=== PATIENT | male | born 1960 | race Caucasian/White ===

== ENCOUNTER 2024-05-10 11:37 | Emergency (ER) | payer BC ==
--- OUTSIDE RECORDS SUMMARY | 2024-05-10 11:41 | XMS REPORT | Continuity of Care Document ---
Author Name Unknown Address [address] [facility] [address] [place], [place] [address] [place] [address] thconnect Address [address] [address] [address] [place] [address] Care Team Providers Care Newspaper Subscription Solicitor Name Role Phone JOSÉ MANUEL WELLER Primary Care Physician Unavailab DR JOSÉ MANUEL Landeros Attending Clinician Unavailab vicki [phone] Attending Clinician Unavailable FOG_A_Provider Attending Clinician Unavailable Fallon Attending Clinician Unavailable SISSON_C Attending Clinician Unavailable DR JOSÉ MANUEL WELLER Admitting Clinician Unavailab vicki FOG_A_Provider Admitting Clinician Unavailable Fallon Admitting Clinician Unavailable SISSON_C Admitting Clinician Unavailable Payers Payer Name Policy Type Policy Number Effective Date Expirati on Date Source [place]UE [place] - [place] [id number] [place] [id number] 2020 00:00:00 [place] [id number] 2020 00:00:00 Problems Condition Name Condition Details Condition Category Status Onset Date Resolution Date Last Treatment Date Treating Clinician Comments Source Urgent desire to urinate Urgent Desire to Urinate Problem Active 12-15 00:00: 00 [facility] Cellulitis of lower leg Cellulitis of Lower Leg Problem Active 2022-05 00:00: 00 [facility] Dog bite of lower leg Dog Bite of Lower Leg Problem Active 2022-05 00:00: 00 [facility] Acquired right hallux rigidus Acquired Right Hallux Rigidus Problem Active 02-05 00:00: 00 [facility] Contusion of right great toe Contusion of Right Great Toe Problem Active 9-14 00:00: 00 [facility] Pain in right foot Pain in Right Foot Problem Active -13 00:00: 00 [facility] Prostate specific antigen above reference range Prostate Specific Antigen above Reference Range Problem Active 09-10 00:00: [address] [facility] Body mass index 25-29 - overweight Body Mass Index 25-29 - Overweight Problem Active 09-10 00:00: [address] [facility] Benign prostatic hyperplasi a with outflow obstructio n Benign Prostatic Hyperplasi a with Outflow Obstructio n Problem Active 09-10 00:00: 00 [facility] Slowing of urinary stream Slowing of Urinary Stream Problem Active 09-10 00:00: [address] [facility] Social History Smoking Status Start Date Stop Date Source Former Smoker [facility] Medications Ordered Medication Name Filled Medication Name Start Date Stop Date Current Medication? Ordering Clinician Indication Dosage Frequency Signature (SIG) Comments Components Source Gemtesa 75 mg tablet Take 1 tablet every day by oral route. Gemtesa 75 mg tablet Take 1 tablet every day by oral route. No 1 Q1D Gemtesa 75 mg tablet Take 1 tablet every day by oral route. [facility] Augmentin 875 mg-125 mg tablet Take 1 tablet every 12 hours by oral route after meals. Augmentin 875 mg-125 mg tablet Take 1 tablet every 12 hours by oral route after meals. No 1 Q12H Augmentin 875 mg-125 mg tablet Take 1 tablet every 12 hours by oral route after meals. [facility] Bactrim DS 800 mg-160 mg tablet Take 1 tablet every 12 hours by oral route after meals. Bactrim DS 800 mg-160 mg tablet Take 1 tablet every 12 hours by oral route after meals. No 1 Q12H Bactrim DS 800 mg-160 mg tablet Take 1 tablet every 12 hours by oral route after meals. [facility] Vital Signs Vital Name Observation Time Observation Value Comments S avelinoce Body Weight 2023-12-16 00:00:00 185 [lb_av] [facility] BP Systolic 2023-12-16 00:00:00 134 mm[Hg] [facility] BMI (Body Mass Index) 2023-12-16 00:00:00 26.5 kg/m2 [facility] BP Diastolic 2023-12-16 00:00:00 70 mm[Hg] [facility] Height 2023-12-16 00:00:00 70 [in_i] [facility] Height 2023-05-06 00:00:00 70 [in_i] [facility] BP Diastolic 2023-05-06 00:00:00 64 mm[Hg] [facility] Body Weight 2023-05-06 00:00:00 193 [lb_av] [facility] BMI (Body Mass Index) 2023-05-06 00:00:00 27.7 kg/m2 [facility] BP Systolic 2023-05-06 00:00:00 131 mm[Hg] [facility] BMI (Body Mass Index) 2023-04-14 00:00:00 27.3 kg/m2 [facility] Body Weight 2023-04-14 00:00:00 190 [lb_av] [facility] Height 2023-04-14 00:00:00 70 [in_i] [facility] BP Diastolic 2022-09-10 00:00:00 70 mm[Hg] [facility] Height 2022-09-10 00:00:00 70 [in_i] [facility] BMI (Body Mass Index) 2022-09-10 00:00:00 27.3 kg/m2 [facility] BP Systolic 2022-09-10 00:00:00 129 mm[Hg] [facility] Body Weight 2022-09-10 00:00:00 190 [lb_av] [facility] Procedures Procedure Date / Time Performed Performing Clinician Source GI- Appendectomy 2017-08-20 00:00:00 [facility] GI- Umbilical Hernia 2016-08-13 00:00:00 [facility] Hernia Repair [facility] GI- Inguinal Hernia [facility] App[facility]ectomy [facility] Cancer [facility] Gastro[facility] Plan of Care Planned Activity Planned Date Details Comments Source Instructions [facility] Encounters Start Date/Time End Date/Time Encounter Type Admission Type Attending [facility] Care Facility Care Department Encounter ID Source 2022-03-07 09:14:34 Outpatient GERMÁNJOSÉ MANUEL CIFUENTES [id number] [facility] [id number] [facility] 2023-12-16 00:00:00 2023-12-16 00:00:00 Jace Coombs MD: [address] [phone] , Ph. [facility] [place] [address] [id number] [facility] 2023-07-23 00:00:00 2023-07-23 00:00:00 Outpatient FOG_A_Provi karla AOSM AOSM [id number] [facility] 2023-07-15 00:00:00 2023-07-15 00:00:00 Outpatient FOG_A_Provi karla AOSM AOSM [id number] [facility] 2023-06-16 00:00:00 2023-06-16 00:00:00 Outpatient FOG_A_Provi karla AOSM AOSM [id number] [facility] 2023-06-10 00:00:00 2023-06-10 00:00:00 Outpatient FOG_A_Provi karla AOSM AOSM [id number] [facility] 2023-05-24 00:00:00 2023-05-24 00:00:00 Outpatient FOG_A_Provi karla AOSM AOSM [id number] [facility] 2023-05-06 00:00:00 2023-05-06 00:00:00 Outpatient Fallon [facility] [id number] [facility] 2023-05-06 00:00:00 2023-05-06 00:00:00 Outpatient Byronon_Vanessa [facility] [id number] [facility] 2023-05-06 00:00:00 2023-05-06 00:00:00 Outpatient FOG_A_Provi karla AOSM AOSM [id number] [facility] 2023-05-06 00:00:00 2023-05-06 00:00:00 Jace Coombs MD: [address] [phone] , Ph. [facility] [place] [phone] [facility] 2023-04-14 00:00:00 2023-04-14 00:00:00 Malathi Anguiano MD: [address] [place] [address] , Ph. [phone] AOSM [facility] [id number] [facility] 2023-04-13 00:00:00 2023-04-13 00:00:00 Outpatient FOG_A_Provi karla AOSM AOSM [id number] [facility] 2023-04-13 00:00:00 2023-04-13 00:00:00 Outpatient FOG_A_Provi karla AOSM AOSM [id number] [facility] 2023-03-16 00:00:00 2023-03-16 00:00:00 Outpatient Malvin_M [facility] [id number] [facility] 2023-02-10 00:00:00 2023-02-10 00:00:00 Outpatient FOG_A_Provi karla AOSM AOSM [id number] [facility] 2023-02-05 00:00:00 2023-02-05 00:00:00 Outpatient FOG_A_Provi karla AOSM AOSM [id number] [facility] 2023-01-29 00:00:00 2023-01-29 00:00:00 Outpatient FOG_A_Provi karla AOSM AOSM [id number] [facility] 2023-01-29 00:00:00 2023-01-29 00:00:00 Outpatient FOG_A_Provi karla AOSM AOSM [id number] [facility] 2023-01-29 00:00:00 2023-01-29 00:00:00 Outpatient FOG_A_Provi karla AOSM AOSM [id number] [facility] 2023-01-28 00:00:00 2023-01-28 00:00:00 Outpatient FOG_A_Provi karla AOSM AOSM [id number] [facility] 2022-12-09 00:00:00 2022-12-09 00:00:00 Outpatient Lewitton_M [facility] [id number] [facility] 2022-09-10 00:00:00 2022-09-10 00:00:00 Outpatient Lewitton_M [facility] [id number] [facility] 2022-09-10 00:00:00 2022-09-10 00:00:00 Jace Coombs MD: [address] [address], [place] [address] , Ph. [facility] [place] [address] [id number] [facility] 2022-09-08 00:00:00 2022-09-08 00:00:00 Outpatient Lewitton_M [facility] [id number] [facility] 2022-08-11 00:00:00 2022-08-11 00:00:00 Outpatient Lewitton_M [facility] [id number] [facility] 2022-03-07 09:20:00 2022-03-07 09:20:00 Outpatient JOSÉ MANUEL NORTON [id number] [facility] [id number] [facility] 2022-03-06 00:00:00 2022-03-06 00:00:00 Outpatient [facility] [id number] [facility]
[2024-05-10] MEDS ORDERED: MORPHINE 4 MG/ML SYR ONE (12:39)
[2024-05-10] MEDS ORDERED: ONDANSETRON 4 MG/2 ML VIAL ONE (12:39)
[2024-05-10 13:01] LABS: Absolute Eosinophils 0.1 K/uL (0-0.5); Absolute Lymphocytes (CBC) 0.8 K/uL (0.7-4.9); Absolute Monocytes 0.5 K/uL (0.1-1.3); Absolute Neutrophil 8.4 K/uL (1.8-8.0); Basophils % 0.4 % (0-1.3); Eosinophils % 1.5 % (0-4.4); Hematocrit 46.9 % (39.6-49.0); Hemoglobin 15.8 g/dL (13.6-17.9); Lymphocytes % 7.9 % (15.3-44.8); MCH 31.7 pg (27.0-35.0); MCHC 33.7 g/dL (32.0-36.0); MCV 94.2 fL (80-100); MPV 9.3 fL (7.6-11.3); Monocytes % 5.4 % (3.3-12.3); Neutrophils % 84.8 % (41.7-73.7); Platelets 240 thou/uL (152-406); RBC Red Blood Cell Count 4.97 M/uL (4.33-5.43); Red Cell Distribution Width 13.6 % (12.1-15.2)
[2024-05-10 13:18] LABS: Albumin 3.3 g/dL (3.4-5.0); Anion Gap 6.8 mEq/L (5.0-15.0); Bilirubin Total 0.9 mg/dL (0.2-1.0); Globulin 3.4 g/dL (2.3-3.5); Potassium 3.8 mEq/L (3.5-5.1); Protein, Total 6.7 g/dL (6.4-8.2)
--- NOTE | 2024-05-10 14:11 | RAD REPORT ---
EXAMINATION: CT ABDOMEN AND PELVIS WITH CONTRAST CLINICAL INDICATION: Abdominal pain TECHNIQUE: CT abdomen and pelvis was performed, after the administration of 100 cc Isovue-300.. Sagit len and coronal reconstructions were obtained. One or more of the following dose reduction techniques were used: Automated exposure control, adjustment of the mA and kV according to patient si ze, and iterative reconstruction. Unless otherwise specified, incidental findings do not require dedicated imaging follow-up. [id number]. Oral contrast was not given which limits evaluation of bowel and appendix. COMPARISON: .None FINDINGS: Liver, spleen, pancreas, adrenals and kidneys appear unremarkable Several fluid filled loops of small bowel are borderline dilated. No evidence of diverticulitis. Prostate gland is moderately to markedly enlarged. Moderate right and [id number]-tl-[id number] left inguinal hernias containing fat. Ventral hernia mid to upper abdomen contains fat. Neck measures 2 cm Spondylosis L4-5. Spondylosis lumbar spine results in spinal stenosis : IMPRESSION: Borderline dilated fluid-filled small bowel loops probably an enteritis or ileus. Partial early small bowel obstruction could also have this appearance. If the patient's symptoms persist then follow-up abdominal plain film series would be recommended
--- NOTE | 2024-05-10 15:28 | ER ---
Nurse's Notes [facility] Name: Timo Villagomez Age: 64 yrs Sex: Male : 1960 Arrival Date: 05/10/2024 Time: 11:37 Bed 16 Private MD: Diagnosis: Lower abdominal pain, unspecified;Enteritis Presentation: 05/10 11:45 Chief complaint: Patient states: 3 weeks ago went to ER in [place] for abdominal tm6 pain. I was admitted for bowel obstruction. This morning I woke up at 3am, had a bowel movement, but pain got worse and worse. Feels like cramping. Feel nauseous, no vomiting. Coronavirus screen: Client denies travel out of the [place] in the last 14 days. Ebola Screen: Patient negative for fever greater than or equal to 101.5 degrees Fahrenheit, and additional compatible Ebola Virus Disease symptoms Patient denies exposure to infectious person. Patient denies travel to an Ebola-affected area in the 21 days before illness onset. No symptoms or risks identified at this time. Initial Sepsis Screen: Does the patient meet any 2 criteria? No. Patient's initial sepsis screen is negative. Does the patient have a suspected source of infection? No. Patient's initial sepsis screen is negative. Risk Assessment: Do you want to hurt yourself or someone else? Patient reports no desire to harm self or others. Onset of symptoms was May 10, 2024 at 03:00. 11:45 Method Of Arrival: Ambulatory tm6 11:45 Acuity: RUSTY 3 tm6 Triage Assessment: 11:45 General: Appears uncomfortable, Behavior is cooperative. Pain: Complains of pain in tm6 abdomen Pain currently is 10 out of 10 on a pain scale. Quality of pain is described as crampy, Pain began 0300. Pain: Pain Quality of pain is described as sharp, shooting, Pain began Is intermittent. EENT: No signs and/or symptoms were reported regarding the EENT system. Neuro: Level of Consciousness is awake, alert, obeys commands, Oriented to person, place, time, situation. Cardiovascular: Patient's skin is warm and dry. Respiratory: Airway is patent Respiratory effort is even, unlabored, Respiratory pattern is regular, symmetrical. GI: Abdomen is round non-distended, Reports lower abdominal pain, upper abdominal pain, nausea. : No signs and/or symptoms were reported regarding the genitourinary system. Derm: No signs and/or symptoms reported regarding the dermatologic system. Musculoskeletal: No signs and/or symptoms reported regarding the musculoskeletal system. Historical: - Allergies: :44 No Known Allergies; tm6 - PMHx: 11:44 None; tm6 - PSHx: 11:44 bowel removal; Appendectomy; hernia repair; tm6 - Immunization history:: Flu vaccine is not up to date. - Infectious Disease History:: Denies. - Social history:: Smoking status: Patient denies any tobacco usage or history of. Screenin:11 [facility] ED Fall Risk Assessment (Adult) History of falling in the last 3 months, ph including since admission No falls in past 3 months (0 pts) Confusion or Disorientation No (0 pts) Intoxicated or Sedated No (0 pts) Impaired Gait No (0 pts) Mobility Assist Device Used No (0 pt) Altered Elimination No (0 pt) Score/Fall Risk Level 0 - 2 = Low Risk Oriented to surroundings, Maintained a safe environment, Hourly rounding (assess needs \T\ fall precautionary measures) done. Abuse screen: Denies threats or abuse. Denies injuries from another. Nutritional screening: No deficits noted. Tuberculosis screening: No symptoms or risk factors identified. Assessment: 13:08 General: Appears in no apparent distress. uncomfortable, well groomed, Behavior is ph calm, cooperative, appropriate for age. Pain: Complains of pain in abdomen. Neuro: Level of Consciousness is awake, alert, obeys commands, Oriented to person, place, time, situation. Cardiovascular: Capillary refill < 3 seconds in bilateral fingers Patient's skin is warm and dry. Respiratory: Airway is patent Respiratory effort is even, unlabored. GI: Abd is soft X 4 quads Reports lower abdominal pain, upper abdominal pain, Patient currently denies nausea, vomiting. Derm: Skin is pink, warm \T\ dry. 15:08 Reassessment: Patient appears in no apparent distress at this time. Patient and/or ph family updated on plan of care and expected duration. Pain level reassessed. Patient is alert, oriented x 3, equal unlabored respirations, skin warm/dry/pink. Pt tolerating PO fluids at this itme. Vital Signs: 11:43 BP 134 / 88; Pulse 85; Resp 20; Temp 98.1(O); Pulse Ox 100% on R/A; MAP 99 mmHg; Weight tm6 83.91 kg; Height 5 ft. 10 in. ; Pain 10/10; 13:11 BP 117 / 79; Pulse 79; Resp 18; Pulse Ox 97% on R/A; ph 11:43 Body Mass Index 26.54 (83.91 kg, 177.8 cm) tm6 11:43 Pain Scale: Adult tm6 ED Course: 11:40 Patient arrived in ED. sj2 11:45 Arm band placed on right wrist. tm6 11:46 Diego Mccoy DO is Attending Physician. ms3 11:47 Triage completed. tm6 12:34 Soo Solorio, RN is Primary Nurse. ph 12:45 Initial lab(s) drawn, by me, sent to lab. Inserted saline lock: 20 gauge in left ph antecubital area, using aseptic technique. Blood collected. Flushed with 10 mL NS. 12:57 CBC with Diff Sent. ph 12:57 CMP Sent. ph 12:57 Lipase Sent. ph 13:11 Patient has correct armband on for positive identification. Placed in gown. Bed in low ph position. Call light in reach. Side rails up X 1. Pulse ox on. NIBP on. Door closed. Noise minimized. Lights dimmed. Warm blanket given. Pillow given. 13:38 CT Abd/Pelvis - IV Contrast Only In Process Unspecified. EDMS 15:26 Camacho Fernandez DO is Referral Physician. ms3 15:36 No provider procedures requiring assistance completed. IV discontinued, intact, ph bleeding controlled, No redness/swelling at site. Pressure dressing applied. Administered Medications: 12:47 Drug: Ondansetron IVP 4 mg IVP once; over 2 minutes Route: IVP; Site: left antecubital; ph 12:55 Follow up: Response: No adverse reaction ph 12:47 Drug: morphine IVP or IV 4 mg IVP once over 4 mins Route: IVP; Infused Over: 4 mins; ph Site: left antecubital; 13:15 Follow up: Response: No adverse reaction; Pain is decreased; RASS: Alert and Calm (0) ph Medication: 13:11 VIS not applicable for this client. ph Outcome: 15:28 Discharge ordered by . ms3 15:36 Patient left the ED. ph 15:36 Discharged to home ambulatory, ph 15:36 Condition: good 15:36 Discharge instructions given to patient, Instructed on discharge instructions, follow up and referral plans. Demonstrated understanding of instructions, follow-up care, Signatures: Dispatcher [employer] Soo Olivia RN RN ph Nadine, DO LANETTE Cortez ms3 Alexey Emerson RN RN tm6 Robyn Reyes 2
--- NOTE | 2024-05-10 15:29 | EDPHYS ---
Physician Documentation [facility] Name: Timo Villagomez Age: 64 yrs Sex: Male : 1960 Arrival Date: 05/10/2024 Time: 11:37 Bed 16 Private MD: ED Physician Diego Mccoy HPI: 05/10 15:30 This 64 yrs old Male presents to ER via Ambulatory with complaints of Abdominal Pain. ms3 15:30 Timo Villagomez presents to the Emergency Department with severe, shooting abdominal pain ms3 that began at 4 a.m. today. He rates the pain as a 9 out of 10 and reports that it is alleviated by standing up and walking. He has a history of bowel obstructions, with the most recent occurring three weeks ago. The patient has also undergone multiple hernial repairs over the past five years and has had an appendectomy and resection of a foot of the small bowel. He believes he may be experiencing another bowel obstruction or hernia, as the pain feels different this time. He reports no nausea, vomiting, or fever. He has not taken any medications for the pain.. Historical: - Allergies: 11:44 No Known Allergies; tm6 - PMHx: 11:44 None; tm6 - PSHx: 11:44 bowel removal; Appendectomy; hernia repair; tm6 - Immunization history:: Flu vaccine is not up to date. - Infectious Disease History:: Denies. - Social history:: Smoking status: Patient denies any tobacco usage or history of. ROS: 15:30 Constitutional: Negative for fever, and chills. Cardiovascular: Negative for chest ms3 pain, and palpitations. Respiratory: Negative for shortness of breath, cough, wheezing, and pleuritic chest pain, 15:30 MS/Extremity: Negative for injury and deformity, Skin: Negative for injury, rash, and discoloration, 15:30 Abdomen/GI: Positive for abdominal pain, Negative for nausea, vomiting, and diarrhea, Exam: 15:30 Constitutional: This is a well developed, well nourished patient who is awake, alert, ms3 and in no acute distress. Chest/axilla: Normal chest wall appearance and motion. Nontender with no deformity. Cardiovascular: Regular rate and rhythm with a normal S1 and S2. No gallops, murmurs, or rubs. Normal PMI, no JVD. No pulse deficits. Respiratory: Lungs have equal breath sounds bilaterally, clear to auscultation and percussion. No rales, rhonchi or wheezes noted. No increased work of breathing, no retractions or nasal flaring. 15:30 Skin: Warm, dry with normal turgor. Normal color with no rashes, no lesions, and no evidence of cellulitis. MS/ Extremity: Pulses equal, no cyanosis. Neurovascular intact. Full, normal range of motion. 15:30 Abdomen/GI: Inspection: abdomen appears normal, Bowel sounds: normal, Palpation: mild abdominal tenderness, in the left lower quadrant, Vital Signs: 11:43 BP 134 / 88; Pulse 85; Resp 20; Temp 98.1(O); Pulse Ox 100% on R/A; MAP 99 mmHg; Weight tm6 83.91 kg; Height 5 ft. 10 in. ; Pain 10/10; 13:11 BP 117 / 79; Pulse 79; Resp 18; Pulse Ox 97% on R/A; ph 11:43 Body Mass Index 26.54 (83.91 kg, 177.8 cm) tm6 11:43 Pain Scale: Adult tm6 MDM: 11:53 Medical Screening Exam initiated ms3 15:30 Differential diagnosis: bowel obstruction, diverticulitis, non-specific abd pain. Data ms3 reviewed: vital signs, nurses notes, lab test result(s), radiologic studies, and as a result, I will discharge patient. I considered the following discharge prescriptions or medication management in the emergency department Medications were administered in the Emergency Department. See MAR. Counseling: I had a detailed discussion with the patient and/or guardian regarding the historical points, exam findings, and any diagnostic results supporting the discharge/admit diagnosis, lab results, radiology results, the need for outpatient follow up, to return to the emergency department if symptoms worsen or persist or if there are any questions or concerns that arise at home. Special discussion: Based on the patient's Hx, exam, and Dx evaluation, there is no indication for emergent surgery or inpatient Tx. It is understood by the patient/guardian that if the Sx's persist or worsen they need to return immediately for re-evaluation. ED course: Discussed labs and imaging with the patient. Patient is currently tolerating p.o. Discussed CT findings of possible early bowel obstruction. With patient tolerating p.o. and symptoms improved at this time through shared decision making patient will be discharged. Patient to follow-up with primary care physician in 2 to 3 days. Patient understands and agrees with plan. All questions were answered. Return precautions discussed include vomiting, worsening pain, or any other concerns. On reevaluation patient's abdomen remains benign, patient is alert and oriented x 4, no apparent distress, nontoxic-appearing, ambulatory in the emergency department, tolerating p.o.. 05/10 11:53 Order name: CBC with Diff; Complete Time: 14:04 ms3 05/10 11:53 Order name: CMP; Complete Time: 14:04 ms3 05/10 11:53 Order name: Lipase; Complete Time: 14:04 ms3 05/10 11:53 Order name: CT Abd/Pelvis - IV Contrast Only; Complete Time: 14:29 ms3 05/10 11:54 Order name: IV Saline Lock; Complete Time: 12:57 ms3 05/10 11:54 Order name: Labs collected and sent; Complete Time: 12:57 ms3 Administered Medications: 12:47 Drug: Ondansetron IVP 4 mg IVP once; over 2 minutes Route: IVP; Site: left antecubital; ph 12:55 Follow up: Response: No adverse reaction ph 12:47 Drug: morphine IVP or IV 4 mg IVP once over 4 mins Route: IVP; Infused Over: 4 mins; ph Site: left antecubital; 13:15 Follow up: Response: No adverse reaction; Pain is decreased; RASS: Alert and Calm (0) ph Disposition Summary: 05/10/24 15:28 Discharge Ordered Notes: Location: Home ms3 Condition: Stable ms3 Diagnosis - Lower abdominal pain, unspecified ms3 - Enteritis ms3 Followup: ms3 - With: Camacho Fernandez DO - When: 2 - 3 days - Reason: Re-evaluation by your physician Discharge Instructions: - Discharge Summary Sheet ms3 - Abdominal Pain, Adult ms3 Forms: - Medication Reconciliation Form ms3 - Antibiotic Education ms3 - Prescription Opioid Use ms3 - Patient Portal Instructions ms3 - Leadership Thank You Letter ms3 Signatures: Dispatcher [employer] Soo Olivia RN RN ph Diego Mccoy DO DO ms3 Ki, Tawney, RN RN tm6
[2024-05-10 15:55] VITALS: TEMP 98.1
[2024-05-10 15:56] VITALS: BP 117/79; O2SAT 97
== END 2024-05-10 15:36 | disposition home or self-care (01) ==
LOC: ER 11:37
DX: K52.9 Noninfective gastroenteritis and colitis, unspecified (principal)
CPT/HCPCS: 85025; 36415; 83690; 80053; 74177; 96375; 96374; 99284; Q9967; J2405